=== PATIENT | male | born 1950 | race Caucasian/White ===

== ENCOUNTER 2016-07-09 10:03 | Outpatient (CLI) | payer MEDICARE | END 2016-07-09 10:04 | disposition home or self-care (01) | DX: R73.01 Impaired fasting glucose (principal); I10 Essential (primary) hypertension ==

== ENCOUNTER 2017-01-15 06:15 | Emergency (ER) | payer MEDICARE ==
[2017-01-15 06:34] LABS: BASOPHILS % (AUTO) 0.3 %; EOSINOPHILS # (AUTO) 0.1 10^3/uL (0.0-0.7); EOSINOPHILS % (AUTO) 0.7 %; HCT - HEMATOCRIT 45.2 % (42.0-52.0); HGB - HEMOGLOBIN 14.9 g/dL (14.0-18.0); LYMPHOCYTES # (AUTO) 1.2 10^3/uL (1.5-3.5); MEAN CORPUSCULAR HEMOGLOBIN 31.1 pg (27.0-31.0); MEAN CORPUSCULAR HGB CONC 32.9 g/dL (32.0-36.0); MEAN CORPUSCULAR VOLUME 94.3 fL (80.0-94.0); MEAN PLATELET VOLUME 7.8 fL (7.4-11.4); MONOCYTES # (AUTO) 0.6 10^3/uL (0.0-1.0); NEUTROPHILS # (AUTO) 10.6 10^3/uL (1.5-6.6); UNCORRECTED WHITE BLOOD COUNT 12.5 x10^3/uL; WHITE BLOOD COUNT 12.5 x10^3/uL (4.8-10.8)
[2017-01-15] MEDS ORDERED: HYDROmorphone 0.5 MG/0.5 ML SYRINGE IVP STA (06:43)
[2017-01-15 06:49] LABS: ALBUMIN/GLOBULIN RATIO 1.9 (1.0-2.2); BILIRUBIN,TOTAL 0.6 mg/dL (0.2-1.0); POTASSIUM 3.8 mmol/L (3.5-5.0)
[2017-01-15] MEDS ORDERED: HYDROmorphone 1 MG/ML SYRINGE ONE (06:53)
--- NOTE | 2017-01-15 07:26 | ED Physician Documentation ---
PD HPI ABD PAIN - Stated complaint Stated Complaint: UPPER ABD PX - Chief complaint Chief Complaint: Abd Pain - History obtained from History obtained from: Patient - History of Present Illness Timing - onset: How many days ago (3) Timing - duration: Days (3) Timing - details: Abrupt onset, Waxing and waning Pain level now: 3 Quality: Pain Location: RUQ Radiation: Other (no radiation) Improved by: Other (no apparent ameliorating factors) Worsened by: Other (PO intake) Associated symptoms: No: Fever, Nausea, Vomiting, Diarrhea, Constipation Similar symptoms before: Has not had sx before Recently seen: Not recently seen Review of Systems Constitutional: reports: Reviewed and negative Cardiac: reports: Reviewed and negative Respiratory: reports: Reviewed and negative GI: reports: Abdominal Pain. denies: Nausea, Vomiting, Constipation, Diarrhea : denies: Dysuria, Frequency PD PAST MEDICAL HISTORY - Past Medical History Past Medical History: Yes Cardiovascular: Hypertension - Past Surgical History Past Surgical History: Yes General: Hiatal hernia repair - Present Medications Home Medications: Ambulatory Orders Medication Instructions Recorded Confirmed Lisinopril [Zestril] 1 tab PO DAILY 01/15/17 01/15/17 oxyCODONE/ACET 5/325 [Percocet 5 1 - 2 each PO Q6H PRN #15 tablet 01/15/17 mg/325 mg] - Allergies Allergies/Adverse Reactions: Allergies Allergy/AdvReac Type Severity Reaction Status Date / Time Penicillins Allergy Unknown Verified 01/15/17 06:22 - Social History Does the pt smoke?: No Smoking Status: Never smoker Does the pt drink ETOH?: Yes Does the pt have substance abuse?: Yes - Immunizations Immunizations are current?: Yes - POLST Patient has POLST: No PD ED PE NORMAL - Vitals Vital signs reviewed: Yes - General General: Alert and oriented X 3, No acute distress, Well developed/nourished - HEENT HEENT: Moist mucous membranes - Cardiac Cardiac: RRR, No murmur - Respiratory Respiratory: No respiratory distress, Clear bilaterally - Abdomen Abdomen: Soft, Non distended, Other (RUQ tenderness without rebound or guarding) - Back Back: No CVA TTP - Derm Derm: Normal color, Warm and dry, No rash Results - Vitals Vitals: Oxygen O2 Source Room air - EKG (time done) No standard instances Rate: Rate (enter#) (60) Rhythm: NSR [place]: Normal Intervals: Normal IA QRS: Normal Ischemia: Normal ST segments - Labs Labs: Laboratory Tests 01/15/17 01/15/17 01/15/17 06:30 06:30 06:30 WBC 12.5 H RBC 4.80 Hgb 14.9 Hct 45.2 MCV 94.3 H MCH 31.1 H MCHC 32.9 RDW 13.0 Plt Count 224 MPV 7.8 Neut # 10.6 H Lymph # 1.2 L [place] # 0.6 Eos # 0.1 Baso # 0.0 Absolute Nucleated RBC 0.00 Nucleated RBC % 0.0 Sodium 135 Potassium 3.8 Chloride 100 L Carbon Dioxide 24 Anion Gap 11.0 BUN 21 H Creatinine 1.0 Estimated GFR (MDRD) 75 L Glucose 144 H Calcium 9.0 Total Bilirubin 0.6 AST 28 ALT 27 Alkaline Phosphatase 56 Troponin I < 0.04 Total Protein 7.0 Albumin 4.6 Globulin 2.4 Albumin/Globulin Ratio 1.9 Lipase 38 Urine Color Urine Clarity Urine pH Ur Specific Junction Urine Protein Urine Glucose (UA) Urine Ketones Urine Occult Blood Urine Nitrite Urine Bilirubin Urine Urobilinogen Ur Leukocyte Esterase Ur Microscopic Review Urine Culture Comments 01/15/17 08:50 WBC RBC Hgb Hct MCV MCH MCHC RDW Plt Count MPV Neut # Lymph # [place] # Eos # Baso # Absolute Nucleated RBC Nucleated RBC % Sodium Potassium Chloride Carbon Dioxide Anion Gap BUN Creatinine Estimated GFR (MDRD) Glucose Calcium Total Bilirubin AST ALT Alkaline Phosphatase Troponin I Total Protein Albumin Globulin Albumin/Globulin Ratio Lipase Urine Color YELLOW Urine Clarity CLEAR Urine pH 6.0 Ur Specific Junction 1.025 Urine Protein NEGATIVE Urine Glucose (UA) NEGATIVE Urine Ketones TRACE Urine Occult Blood NEGATIVE Urine Nitrite NEGATIVE Urine Bilirubin NEGATIVE Urine Urobilinogen 0.2 (NORMAL) Ur Leukocyte Esterase NEGATIVE Ur Microscopic Review NOT INDICATED Urine Culture Comments NOT INDICATED - Rads (name of study) RUQ US Radiology: Prelim report reviewed, See rad report PD MEDICAL DECISION MAKING - ED course Complexity details: reviewed results, re-evaluated patient, considered differential, d/w patient Departure - Departure Disposition: 01 Home, Self Care Clinical Impression: Cholecystitis Condition: Good Instructions: ED Gallstone W Biliary Colic Follow-Up: Kiya Burnette ARNP [Primary Care Provider] - Jim Menjivar MD [Provider Admit Priv/Credential] - Prescriptions: oxyCODONE/ACET 5/325 [Percocet 5 mg/325 mg] 1 - 2 each PO Q6H PRN #15 tablet PRN Reason: Pain Discharge Date/Time: 01/15/17 10:10
[2017-01-15 09:37] LABS: BILIRUBIN,URINE NEGATIVE (NEGATIVE)
[2017-01-15 09:40] LABS: UA CHARGE (STRIP ONLY) YES; UR CULTURE IF IND NOT INDICATED
--- NOTE | 2017-01-15 09:43 | Ultrasound Report ---
RIGHT UPPER QUADRANT ULTRASOUND: 01/15/2017 CLINICAL INDICATION: Pain. TECHNIQUE: Real-time scanning was performed with client account representative static images obtained. FINDINGS: The liver measures 15 cm. There is a 1.1 cm echogenic nodule in the posterior left lobe, compatible with a small hemangioma. No intrahepatic biliary dilatation or suspicious solid hepatic l esion is identified. The common bile duct measures 6 mm. The gallbladder demonstrates wall thickeni ng and pericholecystic fluid, as well as mobile sludge within the lumen. No definite shadowing calcu isabell is identified. The right kidney measures 9.9 cm, and demonstrates no hydronephrosis. IMPRESSION: GALLBLADDER WALL THICKENING, WITH PERICHOLECYSTIC FLUID, COMPATIBLE WITH ACUTE CHOLECYST ITIS. MOBILE SLUDGE IS SEEN WITHIN THE LUMEN, BUT NO DEFINITE SHADOWING CALCULUS IS APPRECIATED. JOB #: [id number] EXT JOB #:[id number]
[2017-01-15] MEDS ORDERED: KETOROLAC 60 MG/2 ML VIAL IVP STA (10:03)
[2017-01-15 10:21] VITALS: BP 134/65
== END 2017-01-15 10:10 | disposition home or self-care (01) ==
LOC: ED 06:15
DX: K81.0 Acute cholecystitis (principal); I10 Essential (primary) hypertension
CPT/HCPCS: 36415; 76705; 80053; 81003; 83690; 84484; 85025; 93005; 96374; 99284; J1170; 81001; 87086

== ENCOUNTER 2017-04-29 09:29 | Day surgery (SDC) | payer MEDICARE ==
[2017-04-29] MEDS ORDERED: LACTATED RINGERS 1,000 ML IV ONE (09:59)
[2017-04-29] MEDS ORDERED: MIDAZOLAM 2 MG/2 ML VIAL IVP ONE (10:04)
[2017-04-29] MEDS ORDERED: fentaNYL 100 MCG/2 ML VIAL IVP ONE (10:04)
[2017-04-29 11:20] VITALS: BP 109/62
== END 2017-04-29 09:30 | disposition home or self-care (01) ==
LOC: SDS 09:29
PROVIDERS: ATTEND Surgery
PROC: 0DJD8ZZ Inspection of Lower Intestinal Tract, Via Natural or Artificial Opening Endoscopic (ICD-10-PCS; principal; 2017-04-29 10:30)
DX: Z12.11 Encounter for screening for malignant neoplasm of colon (principal); K57.30 Diverticulosis of large intestine without perforation or abscess without bleeding; K64.8 Other hemorrhoids; Z86.010 Personal history of colon polyps; I10 Essential (primary) hypertension; Z86.718 Personal history of other venous thrombosis and embolism; Z87.891 Personal history of nicotine dependence
CPT/HCPCS: G0105; J7120

== ENCOUNTER 2018-01-01 15:06 | Outpatient (CLI) | payer MEDICARE | END 2018-01-01 15:07 | disposition home or self-care (01) | LOC: LAB.F 15:06 | PROVIDERS: ATTEND Nurse Practitioner Family | DX: M79.606 Pain in leg, unspecified (principal) | CPT/HCPCS: 36415; 85379 ==

== ENCOUNTER 2018-01-02 18:55 | Outpatient (CLI) | payer MEDICARE ==
--- NOTE | 2018-01-02 20:25 | Ultrasound Report ---
Reason: LEG PAIN, ACUTE Procedure Date: 01/02/2018 Accession Number: [id number] / [id number] Procedure: US - Duplex Ext Veins Right CPT Code: FULL RESULT: EXAM: RIGHT LOWER EXTREMITY VENOUS ULTRASOUND EXAM DATE: 01/02/2018 07:14 PM. CLINICAL HISTORY: Acute leg pain. COMPARISON: None. TECHNIQUE: Real-time sonographic vascular imaging was performed by the life enrichment director through the lower extremity utilizing both color-flow and Doppler spectral analysis. Multiple industrial relations representative static images were saved for review. FINDINGS: Common Femoral Vein (CFV): Normal. CFV-GSV Junction: Normal. Profunda Femoral Vein (PFV): Normal. Femoral Vein (FV) Prox: Normal. Femoral Vein (FV) Mid: Normal. Femoral Vein (FV) Dist: Normal. Popliteal Vein: Occlusive thrombus. Posterior Tibial Veins: Not well seen. Peroneal Veins: Not well seen. Other: None. IMPRESSION: Occlusive DVT in the right popliteal vein. RADIA The call report notification system was initiated by Dr. Redd Keller at 20:09 hrs on 01/02/18. The above findings were discussed with Dr. Zuluaga by Dr. Redd Keller at 20:24 hrs on 01/02/18.
== END 2018-01-02 18:56 | disposition home or self-care (01) ==
LOC: DI 18:55
PROVIDERS: ATTEND Internal Medicine
DX: I82.431 Acute embolism and thrombosis of right popliteal vein (principal)

== ENCOUNTER 2018-01-02 20:31 | Emergency (ER) | payer MEDICARE ==
[2018-01-02 20:40] VITALS: BP 126/70
[2018-01-02] MEDS ORDERED: RIVAROXABAN 15 MG TABLET PO STA (20:55)
--- NOTE | 2018-01-02 20:58 | ED Physician Documentation ---
History of Present Illness - Stated complaint Stated Complaint: DVT/PER DR AGARWAL - Chief complaint Chief Complaint: Ext Problem - Additonal information Additional information: 67-year-old male presents the emergency department with right calf pain for the past 6 days. The patient had an Outpatient ultrasound today which showed an acute DVT. The patient Was sent to the emergency department for anticoagulation. The patient has a history of a prior DVT. The patient denies chest pain, shortness of breath or any other acute symptoms. Symptoms are described as moderate. No triggering factors. No relieving factors. Review of Systems Constitutional: denies: Fever Eyes: denies: Loss of vision Ears: denies: Ear pain Nose: denies: Congestion Throat: denies: Sore throat Respiratory: denies: Dyspnea GI: denies: Abdominal Pain : denies: Dysuria Musculoskeletal: reports: Extremity pain PD PAST MEDICAL HISTORY - Past Medical History Past Medical History: No Cardiovascular: Hypertension Respiratory: None Neuro: None Endocrine/Autoimmune: None GI: Colon polyps : None HEENT: None Psych: None Musculoskeletal: Gout Derm: None - Past Surgical History Past Surgical History: Yes General: Colonoscopy, Other - Present Medications Home Medications: Ambulatory Orders Medication Instructions Recorded Confirmed Lisinopril [Zestril] 2 tab PO DAILY 01/15/17 01/02/18 Rivaroxaban [Xarelto] 15 mg PO BID 21 Days #42 tablet 01/02/18 - Allergies Allergies/Adverse Reactions: Allergies Allergy/AdvReac Type Severity Reaction Status Date / Time Penicillins Allergy Unknown Verified 01/02/18 20:40 - Social History Does the pt smoke?: No Smoking Status: Never smoker Does the pt drink ETOH?: Yes Does the pt have substance abuse?: Yes Substance Use and Type: Marijuana - Immunizations Immunizations are current?: Yes - POLST Patient has POLST: No PD ED PE NORMAL - General General: Alert and oriented X 3, No acute distress - HEENT HEENT: Atraumatic, PERRL, EOMI, Ears normal - Cardiac Cardiac: RRR, Strong equal pulses - Respiratory Respiratory: No respiratory distress - Neuro Neuro: Alert and oriented X 3, Normal speech - Psych Psych: Normal mood Results - Vitals Vitals: Vital Signs - 24 hr 01/02/18 20:35 Temperature 36.4 C L Heart Rate 67 Respiratory 16 Rate Blood Pressure 126/70 O2 Saturation 97 Oxygen O2 Source Room air PD MEDICAL DECISION MAKING - ED course ED course: 67-year-old male with an acute DVT, the patient was given the option of Xarelto or Lovenox and Coumadin. The risks and benefits of both were discussed. The patient chose Xarelto. The patient was given a dose in the emergency department and a prescription for the next 21 days. The patient will follow up with primary care. I discussed warning signs and recommended returning to the emergency department for any worsening or any concerns. Departure - Departure Disposition: 01 Home, Self Care Clinical Impression: DVT (deep venous thrombosis) Qualifiers: DVT location: lower extremity Affected thrombotic vein of extremity: popliteal Chronicity: acute Laterality: unspecified laterality Qualified Code(s): I82.439 - Acute embolism and thrombosis of unspecified popliteal vein Condition: Good Instructions: DVT Follow-Up: Kiya Agarwal ARNP [Primary Care Provider] - Tomorrow Prescriptions: Rivaroxaban [Xarelto] 15 mg PO BID 21 Days #42 tablet Comments: Please return to the emergency department for worsening symptoms or any concerns
== END 2018-01-02 21:06 | disposition home or self-care (01) ==
LOC: ED 20:31
DX: I82.431 Acute embolism and thrombosis of right popliteal vein (principal); I10 Essential (primary) hypertension; Z86.718 Personal history of other venous thrombosis and embolism
CPT/HCPCS: 93971; 99283; A9270

== ENCOUNTER 2018-02-24 09:17 | Outpatient (CLI) | payer MEDICARE ==
[2018-02-24 18:40] LABS: BASOPHILS % (AUTO) 0.9 %; EOSINOPHILS # (AUTO) 0.1 10^3/uL (0.0-0.7); EOSINOPHILS % (AUTO) 2.6 %; HGB - HEMOGLOBIN 15.2 g/dL (14.0-18.0); LYMPHOCYTES # (AUTO) 1.7 10^3/uL (1.5-3.5); LYMPHOCYTES % (AUTO) 33.9 %; MEAN CORPUSCULAR HEMOGLOBIN 31.6 pg (27.0-31.0); MEAN CORPUSCULAR HGB CONC 32.8 g/dL (32.0-36.0); MEAN CORPUSCULAR VOLUME 96.5 fL (80.0-94.0); MEAN PLATELET VOLUME 9.1 fL (7.4-11.4); MONOCYTES # (AUTO) 0.4 10^3/uL (0.0-1.0); MONOCYTES % (AUTO) 8.6 %; NEUTROPHILS # (AUTO) 2.8 10^3/uL (1.5-6.6); PLT - PLATELET COUNT 224 10^3/uL (130-450); RED BLOOD COUNT 4.81 10^6/uL (4.70-6.10); RED CELL DISTRIBUTION WIDTH 13.2 % (12.0-15.0); WHITE BLOOD COUNT 5.1 x10^3/uL (4.8-10.8)
[2018-02-24 18:53] LABS: HB2 TOTAL 16.4 g/dL; HEMOGLOBIN A1C 0.62 g/dL; HEMOGLOBIN A1C % 5.6 % (4.6-6.2)
[2018-02-24 19:02] LABS: ALBUMIN 4.1 g/dL (3.2-5.5); ALBUMIN/GLOBULIN RATIO 1.6 (1.0-2.2); ALKALINE PHOSPHATASE 53 IU/L (42-121); ALT ALANINE AMINOTRANSFERASE 24 IU/L (10-60); AST ASPARTATE AMINOTRANSFERASE 23 IU/L (10-42); BUN - BLOOD UREA NITROGEN 19 mg/dL (6-20); CALCIUM 8.7 mg/dL (8.5-10.3); CARBON DIOXIDE - CO2 27 mmol/L (21-32); CHLORIDE 103 mmol/L (101-111); CHOL/HDL RATIO 2.1 (<5.0); CHOLESTEROL 174 mg/dL; CREATININE 0.9 mg/dL (0.6-1.2); GFR - MDRD 84 (>89); GLUCOSE 103 mg/dL (70-100); HDL CHOLESTEROL 82 mg/dL; LDL CHOLESTEROL,CALCULATED 76 mg/dL; LDL/HDL RATIO 0.9 (<3.6); SODIUM 135 mmol/L (135-145); TOTAL PROTEIN 6.7 g/dL (6.7-8.2); VLDL CHOLESTEROL 16 mg/dL
== END 2018-02-24 23:59 | disposition home or self-care (01) ==
LOC: LAB.S 09:17
PROVIDERS: ATTEND Nurse Practitioner Family
DX: I10 Essential (primary) hypertension (principal); Z13.6 Encounter for screening for cardiovascular disorders; R73.01 Impaired fasting glucose; D72.829 Elevated white blood cell count, unspecified
CPT/HCPCS: 36415; 80053; 80061; 83036; 83721; 85025

== ENCOUNTER 2019-08-29 10:07 | Outpatient (CLI) | payer MEDICARE ==
[2019-08-29 13:19] LABS: BASOPHILS % (AUTO) 0.4 %; EOSINOPHILS % (AUTO) 0.2 %; HGB - HEMOGLOBIN 15.3 g/dL (14.0-18.0); LYMPHOCYTES % (AUTO) 8.6 %; MEAN CORPUSCULAR HGB CONC 33.5 g/dL (32.0-36.0); MEAN CORPUSCULAR VOLUME 95.6 fL (80.0-94.0); MEAN PLATELET VOLUME 10.8 fL (7.4-11.4); MONOCYTES # (AUTO) 0.7 10^3/uL (0.0-1.0); MONOCYTES % (AUTO) 6.4 %; NEUTROPHILS # (AUTO) 9.4 10^3/uL (1.5-6.6); PLT - PLATELET COUNT 271 10^3/uL (130-450); RED BLOOD COUNT 4.78 10^6/uL (4.70-6.10); RED CELL DISTRIBUTION WIDTH 12.5 % (12.0-15.0); WHITE BLOOD COUNT 11.2 x10^3/uL (4.8-10.8)
[2019-08-29 13:35] LABS: HEMOGLOBIN A1C 0.57 g/dL; HEMOGLOBIN A1C % 5.4 % (4.6-6.2)
[2019-08-29 13:37] LABS: AMYLASE 45 U/L (28-100); LIPASE 27 U/L (22-51)
[2019-08-29 13:42] LABS: ALBUMIN 4.2 g/dL (3.2-5.5); ALBUMIN/GLOBULIN RATIO 1.8 (1.0-2.2); ALKALINE PHOSPHATASE 58 IU/L (42-121); ALT ALANINE AMINOTRANSFERASE 21 IU/L (10-60); AST ASPARTATE AMINOTRANSFERASE 18 IU/L (10-42); BILIRUBIN,TOTAL 1.5 mg/dL (0.2-1.0); BUN - BLOOD UREA NITROGEN 18 mg/dL (6-20); CARBON DIOXIDE - CO2 28 mmol/L (21-32); CHLORIDE 95 mmol/L (101-111); CHOL/HDL RATIO 1.9 (<5.0); CHOLESTEROL 198 mg/dL; CREATININE 0.8 mg/dL (0.6-1.2); GLUCOSE 130 mg/dL (70-100); HDL CHOLESTEROL 106 mg/dL; LDL CHOLESTEROL,CALCULATED 83 mg/dL; LDL/HDL RATIO 0.8 (<3.6); SODIUM 135 mmol/L (135-145); TOTAL PROTEIN 6.5 g/dL (6.7-8.2); VLDL CHOLESTEROL 9 mg/dL
[2019-08-29 13:43] LABS: PSA FREE 0.14 ng/mL (0.16-2.81)
[2019-08-29 13:44] LABS: PSA TOTAL 0.8 ng/mL (0.000-2.000)
== END 2019-08-29 23:59 | disposition home or self-care (01) ==
LOC: LAB.S 10:07
PROVIDERS: ATTEND Registered Nurse
DX: I10 Essential (primary) hypertension (principal); R73.01 Impaired fasting glucose; R10.13 Epigastric pain
CPT/HCPCS: 36415; 80053; 80061; 82150; 83036; 83690; 83721; 84153; 84154; 84443; 85025

== ENCOUNTER 2020-02-12 16:47 | Outpatient (CLI) | payer MEDICARE | END 2020-02-12 16:48 | disposition home or self-care (01) | LOC: COV 16:47 | PROVIDERS: ATTEND Family Medicine | DX: Z20.828 Contact with and (suspected) exposure to other viral communicable diseases (principal) ==

== ENCOUNTER 2020-07-05 07:00 | Outpatient (CLI) | payer MEDICARE ==
--- NOTE | 2020-07-05 10:01 | XRAY Report ---
PROCEDURE: Shoulder 3 View RT INDICATIONS: RIGHT SHOULDER PAIN TECHNIQUE: 3 views of the shoulder were acquired. COMPARISON: None. FINDINGS: Bones: No acute fractures or dislocations. Moderate hypertrophic osteoarthritic changes of the right acromioclavicular joint are present. Coracoclavicular and acromioclavicular intervals are maintained . Mild glenohumeral joint degenerative change. No suspicious bony lesions. Visualized ribs appear in tact. Soft tissues: No suspicious soft tissue calcifications. IMPRESSION: Right shoulder without acute fracture or dislocation. Moderate hypertrophic osteoarthritic changes of the right acromioclavicular joint. Mild degenerative changes of the right glenohumeral joint. Reviewed by: Murali Lancaster MD on 07/05/2020 8:59 AM JIMENA Approved by: Murali Lancaster MD on 07/05/2020 8:59 AM JIMENA Station ID: [id number]
--- NOTE | 2020-07-05 10:05 | XRAY Report ---
PROCEDURE: Hand 3 View RT INDICATIONS: RIGHT HAND PAIN TECHNIQUE: 3 views of the hand(s) acquired. COMPARISON: None FINDINGS: Bones: No acute fractures are visualized. Alignment of the right hand and carpal bones appear anatom ic. There is moderate diffuse background polyarticular osteoarthritic changes of the right hand most notable in the distal interphalangeal joints of the second through fifth fingers as well as the inter phalangeal joint of the right. Mild degenerative changes of the metacarpophalangeal joints and proxim al interphalangeal joints of the right hand. Degenerative changes of the right first carpal metacarpa l and triscaphe joints. No suspicious osseous erosions. No periarticular osteopenia. No suspicious b lay lesions. Soft tissues: No suspicious soft tissue calcifications. Moderate dorsal soft tissue swelling of the right hand predominantly over the level of the metacarpophalangeal joints. IMPRESSION: Moderate dorsal right hand soft tissue swelling of the level of the metacarpophalangeal joints. No de finite underlying fracture or dislocation seen. Moderate diffuse background osteophytic changes of the right hand and wrist as described above. If there is persistent clinical concern for a radiographically occult fracture, recommend immobilizat ion and repeat imaging in 10 to 14 days. Reviewed by: Murali Lancaster MD on 07/05/2020 9:04 AM JIMENA Approved by: Murali Lancaster MD on 07/05/2020 9:04 AM JIMENA Station ID: [id number]
== END 2020-07-05 23:59 | disposition home or self-care (01) ==
LOC: DI.S 07:00
PROVIDERS: ATTEND Physician Assistant Medical
DX: M19.041 Primary osteoarthritis, right hand (principal); R60.0 Localized edema; M19.031 Primary osteoarthritis, right wrist; M19.011 Primary osteoarthritis, right shoulder

== ENCOUNTER 2020-08-01 12:58 | Outpatient (CLI) | payer MEDICARE ==
[2020-08-01] MEDS ORDERED: GADOBUTROL 7.5 MMOL/7.5 ML VIAL ONE (13:08)
[2020-08-01] MEDS ORDERED: BUFFERED LIDOCAINE 10 ML SYRINGE ONE (13:08)
[2020-08-01] MEDS ORDERED: GADOBUTROL 7.5 MMOL/7.5 ML VIAL IVP ONE (14:03)
[2020-08-01] MEDS ORDERED: BUFFERED LIDOCAINE 10 ML SYRINGE IU ONE (14:03)
[2020-08-01] MEDS ORDERED: iohexoL-240 20 ML VIAL IVP ONE (14:04)
--- NOTE | 2020-08-01 15:16 | XRAY Report ---
PROCEDURE: Arthrogram Needle Placement INDICATIONS: RT SHOULDER PAIN CONTRAST: CONTRAST: gadavist/omnip FLUOROSCOPY TIME: FLUORO TIME: 26sec and NUMBER IMAGES: 2 TECHNIQUE: The indications, alternatives, benefits, risks, and complications of the procedure were explained to the patient. Written informed consent was obtained and placed in the chart. The shoulder was examin ed fluoroscopically and a site for needle placement chosen for entry into the glenohumeral joint from an anterior approach. The skin was prepped and draped in the usual fashion, and 1% lidocaine infilt rated from skin down to joint capsule. A spinal needle was inserted into the glenohumeral joint, and a small amount of iodinated contrast media injected to confirm intra-articular placement of the need le tip. This was followed by approximately 12 mL dilute solution of a gadolinium containing MR contr ast agent. The needle was removed and a dressing was applied. The patient was given postprocedural instructions and sent to the MR suite for MR imaging. FINDINGS: A single fluoroscopic spot image demonstrates intra-articular location of injected iodinated contrast . IMPRESSION: Successful fluoroscopically guided administration of dilute Gadolinium solution into the shoulder kj poole for MR arthrogram. Reviewed by: Anna Gillette MD on 08/01/2020 3:15 PM PDT Approved by: Anna Gillette MD on 08/01/2020 3:15 PM PDT Station ID: [id number]
--- NOTE | 2020-08-01 16:56 | MRI Report ---
PROCEDURE: Arthrogram Shoulder RT INDICATIONS: RT SHOULDER PAIN CONTRAST: 12 mL of diluted intra-articular gadolinium contrast. TECHNIQUE: After the administration of 12 mL of dilute intra-articular Gadolinium contrast, oblique coronal T1 a nd T2 spin echo with fat saturation, oblique sagittal T1 spin echo with and without fat saturation, o blique sagittal T2 fast spin echo with fat saturation, axial T1 spin echo with fat saturation through the shoulder. COMPARISON: Shoulder radiograph dated 07/05/2020. FINDINGS: Image quality: Excellent. Rotator cuff: Tendinosis and low to moderate grade articular and bursal surface partial-thickness tea r involving distal supraspinatus at its insertion on humeral head is seen extending to musculotendino us junction. Distal infraspinatus and subscapularis tendons are grossly intact. No full-thickness rot ator cuff tendon rupture.. Very mild supraspinatus muscle atrophy is seen on sagittal images. Bones and bursae: No bone marrow contusions or fractures. Moderate acromioclavicular joint osteoarth ritic changes are noted with downward osteophyte formation depressing on musculotendinous junction of supraspinatus. Capsule and soft tissues: There is superior labral tear at 11 to 1:00 position. The glenohumeral liga ments appear intact. The long head of the biceps tendon tendinosis and low-grade partial-thickness t ear is noted. The rotator interval appears normal, without fibrosis. The coracohumeral ligament is o f normal thickness. No intra-articular bodies. IMPRESSION: 1. Tendinosis and low to moderate grade articular and bursal surface partial-thickness tear involving distal supraspinatus extending to musculotendinous junction. Mild supraspinatus muscle atrophy. 2. Moderate acromioclavicular joint osteoarthritis. 3. Suggestion of superior labral tear at 11 to 1:00 position. 4. Proximal intra-articular portion of long head of biceps tendinosis and low-grade partial-thickness tear. Reviewed by: Bebo Ozuna MD on 08/01/2020 4:55 PM PDT Approved by: Bebo Ozuna MD on 08/01/2020 4:55 PM PDT Station ID: [id number]
== END 2020-08-01 12:59 | disposition home or self-care (01) ==
LOC: DI 12:58
PROVIDERS: ATTEND Registered Nurse
DX: M75.111 Incomplete rotator cuff tear or rupture of right shoulder, not specified as traumatic (principal); M19.011 Primary osteoarthritis, right shoulder; S46.121A Laceration of muscle, fascia and tendon of long head of biceps, right arm, initial encounter; R93.6 Abnormal findings on diagnostic imaging of limbs
CPT/HCPCS: 23350; 73222; 77002; A9585; Q9966

== ENCOUNTER 2020-10-03 08:05 | Outpatient (CLI) | payer MEDICARE ==
[2020-10-03 15:27] LABS: BASOPHILS % (AUTO) 0.5 %; EOSINOPHILS # (AUTO) 0.1 10^3/uL (0.0-0.7); EOSINOPHILS % (AUTO) 2.5 %; HGB - HEMOGLOBIN 14.9 g/dL (14.0-18.0); LYMPHOCYTES # (AUTO) 1.5 10^3/uL (1.5-3.5); LYMPHOCYTES % (AUTO) 27.3 %; MEAN CORPUSCULAR HEMOGLOBIN 32.3 pg (27.0-31.0); MEAN CORPUSCULAR HGB CONC 33.1 g/dL (32.0-36.0); MEAN CORPUSCULAR VOLUME 97.4 fL (80.0-94.0); MEAN PLATELET VOLUME 10.6 fL (7.4-11.4); MONOCYTES # (AUTO) 0.6 10^3/uL (0.0-1.0); NEUTROPHILS # (AUTO) 3.3 10^3/uL (1.5-6.6); NEUTROPHILS % (AUTO) 59.2 %; PLT - PLATELET COUNT 226 10^3/uL (130-450); RED BLOOD COUNT 4.62 10^6/uL (4.70-6.10); RED CELL DISTRIBUTION WIDTH 12.7 % (12.0-15.0); WHITE BLOOD COUNT 5.5 x10^3/uL (4.8-10.8)
[2020-10-03 16:10] LABS: THYROID STIMULATING HORMONE 2.42 uIU/mL (0.34-5.60)
[2020-10-03 16:18] LABS: ALBUMIN 4.1 g/dL (3.2-5.5); ALBUMIN/GLOBULIN RATIO 1.6 (1.0-2.2); ALKALINE PHOSPHATASE 42 IU/L (42-121); ALT ALANINE AMINOTRANSFERASE 20 IU/L (10-60); AST ASPARTATE AMINOTRANSFERASE 18 IU/L (10-42); BILIRUBIN,TOTAL 0.7 mg/dL (0.2-1.0); BUN - BLOOD UREA NITROGEN 20 mg/dL (6-20); CARBON DIOXIDE - CO2 23 mmol/L (21-32); CHLORIDE 105 mmol/L (101-111); CHOL/HDL RATIO 2.1 (<5.0); CHOLESTEROL 184 mg/dL; GFR - MDRD 74 (>89); GLUCOSE 108 mg/dL (70-100); HDL CHOLESTEROL 86 mg/dL; LDL CHOLESTEROL,CALCULATED 90 mg/dL; POTASSIUM 4.5 mmol/L (3.5-5.0); SODIUM 138 mmol/L (135-145); TOTAL PROTEIN 6.6 g/dL (6.7-8.2); TRIGLYCERIDES 41 mg/dL; VLDL CHOLESTEROL 8 mg/dL
== END 2020-10-03 08:06 | disposition home or self-care (01) ==
LOC: LAB.S 08:05
PROVIDERS: ATTEND Registered Nurse
DX: I10 Essential (primary) hypertension (principal); Z79.01 Long term (current) use of anticoagulants; Z87.39 Personal history of other diseases of the musculoskeletal system and connective tissue; Z12.5 Encounter for screening for malignant neoplasm of prostate
CPT/HCPCS: 36415; 80053; 80061; 84443; 85025; G0103; 83721; 84153

== ENCOUNTER 2021-04-11 09:19 | Outpatient (CLI) | payer MEDICARE ==
--- NOTE | 2021-04-11 16:29 | Ultrasound Report ---
PROCEDURE: Aorta Screening INDICATIONS: HYPERTENSION TECHNIQUE: Real time scanning was performed of the aorta and iliac arteries, with image documentatio n. COMPARISON: None FINDINGS: Aorta: Proximal aortic diameter measures 2.4 x 2.4 cm. Mid-aorta measures 1.8 x 1.8 cm. Distal aor tic diameter is 1.6 x 1.8 cm. Iliac arteries: Right common iliac artery measures 1.1 x 1.2 cm. Left common iliac artery measures 1.2 x 1.2 cm. IMPRESSION: No abdominal aortic aneurysm. Reviewed by: Bebo Ozuna MD on 04/11/2021 4:28 PM PST Approved by: Bebo Ozuna MD on 04/11/2021 4:28 PM PST Station ID: [id number]
== END 2021-04-11 09:20 | disposition home or self-care (01) ==
LOC: DI 09:19
PROVIDERS: ATTEND Registered Nurse
DX: Z13.6 Encounter for screening for cardiovascular disorders (principal); Z79.01 Long term (current) use of anticoagulants; I10 Essential (primary) hypertension

== ENCOUNTER 2021-08-31 09:15 | Outpatient (CLI) | payer MEDICARE ==
--- NOTE | 2021-08-31 15:09 | XRAY Report ---
PROCEDURE: Wrist 2 View BILAT INDICATIONS: WRIST PAIN TECHNIQUE: 2 views of each wrist were acquired. COMPARISON: X-ray right hand, 07/05/2020. FINDINGS: Bones: No acute fractures or dislocations. There is a ossicle in the dorsal aspect of the left wris t, suspicious for an old triquetral fracture. No suspicious bony lesions. Osteoarthritic changes oliva aterally, moderate on the left and mild on the right. Soft tissues: No suspicious soft tissue calcifications. IMPRESSION: 1. Osteoarthritis, left greater than right. 2. Suspect old left triquetral fracture. Reviewed by: Seferino Lane MD on 08/31/2021 3:08 PM PDT Approved by: Seferino Lane MD on 08/31/2021 3:08 PM PDT Station ID: [id number]
--- NOTE | 2021-08-31 15:51 | XRAY Report ---
PROCEDURE: Knee 2 View BILAT INDICATIONS: BILATERAL KNEE PAIN TECHNIQUE: 2 views of the bilateral knee(s) were acquired. COMPARISON: Right knee dated 02/27/2016. FINDINGS: Bones: No fractures or dislocations. No suspicious bony lesions. Tricompartment osteophytosis. Faheem ateral moderate to severe medial compartment joint space loss. Right knee is significantly progressiv e since the prior study from 2015. Soft tissues: No joint effusion. No suspicious soft tissue calcifications. IMPRESSION: Degenerative arthritis of the bilateral knees Reviewed by: Yair Myles MD on 08/31/2021 3:50 PM PDT Approved by: Yair Myles MD on 08/31/2021 3:50 PM PDT Station ID: [id number]
== END 2021-08-31 09:16 | disposition home or self-care (01) ==
LOC: DI.S 09:15
PROVIDERS: ATTEND Registered Nurse
DX: M19.032 Primary osteoarthritis, left wrist (principal); M19.031 Primary osteoarthritis, right wrist; M17.0 Bilateral primary osteoarthritis of knee

== ENCOUNTER 2022-01-19 09:06 | Outpatient (CLI) | payer MEDICARE ==
[2022-01-19 14:51] LABS: BASOPHILS % (AUTO) 0.5 %; EOSINOPHILS # (AUTO) 0.2 10^3/uL (0.0-0.7); EOSINOPHILS % (AUTO) 2.5 %; HCT - HEMATOCRIT 48.8 % (42.0-52.0); HGB - HEMOGLOBIN 15.7 g/dL (14.0-18.0); LYMPHOCYTES # (AUTO) 1.8 10^3/uL (1.5-3.5); LYMPHOCYTES % (AUTO) 28.5 %; MEAN CORPUSCULAR HEMOGLOBIN 31.4 pg (27.0-31.0); MEAN CORPUSCULAR HGB CONC 32.2 g/dL (32.0-36.0); MEAN CORPUSCULAR VOLUME 97.6 fL (80.0-94.0); MEAN PLATELET VOLUME 10.6 fL (7.4-11.4); MONOCYTES # (AUTO) 0.7 10^3/uL (0.0-1.0); MONOCYTES % (AUTO) 10.9 %; NEUTROPHILS # (AUTO) 3.6 10^3/uL (1.5-6.6); NEUTROPHILS % (AUTO) 57.3 %; PLT - PLATELET COUNT 247 10^3/uL (130-450); RED CELL DISTRIBUTION WIDTH 12.6 % (12.0-15.0); WHITE BLOOD COUNT 6.3 x10^3/uL (4.8-10.8)
[2022-01-19 15:16] LABS: ALBUMIN/GLOBULIN RATIO 1.3 (1.0-2.2); ALKALINE PHOSPHATASE 70 IU/L (42-121); ALT ALANINE AMINOTRANSFERASE 25 IU/L (10-60); AST ASPARTATE AMINOTRANSFERASE 20 IU/L (10-42); BILIRUBIN,TOTAL 1.1 mg/dL (0.2-1.0); BUN - BLOOD UREA NITROGEN 19 mg/dL (6-20); CALCIUM 8.9 mg/dL (8.5-10.3); CARBON DIOXIDE - CO2 27 mmol/L (21-32); CHLORIDE 102 mmol/L (101-111); CHOL/HDL RATIO 1.9 (<5.0); CHOLESTEROL 171 mg/dL; CREATININE 0.9 mg/dL (0.6-1.2); GFR - MDRD 83 (>89); GLUCOSE 105 mg/dL (70-100); HDL CHOLESTEROL 92 mg/dL; LDL CHOLESTEROL,CALCULATED 68 mg/dL; LDL/HDL RATIO 0.7 (<3.6); POTASSIUM 4.5 mmol/L (3.5-5.0); SODIUM 136 mmol/L (135-145); TRIGLYCERIDES 54 mg/dL; VLDL CHOLESTEROL 11 mg/dL
[2022-01-19 15:25] LABS: THYROID STIMULATING HORMONE 3.03 uIU/mL (0.34-5.60)
== END 2022-01-19 09:07 | disposition home or self-care (01) ==
LOC: LAB.S 09:06
PROVIDERS: ATTEND Registered Nurse
DX: Z79.01 Long term (current) use of anticoagulants (principal); I10 Essential (primary) hypertension; Z13.220 Encounter for screening for lipoid disorders
CPT/HCPCS: 36415; 80053; 80061; 83721; 84443; 85025

== ENCOUNTER 2023-06-27 07:37 | Outpatient (CLI) | payer MEDICARE ==
[2023-06-27 14:36] LABS: BASOPHILS % (AUTO) 0.3 %; EOSINOPHILS # (AUTO) 0.1 10^3/uL (0.0-0.7); HCT - HEMATOCRIT 48.1 % (42.0-52.0); HGB - HEMOGLOBIN 15.4 g/dL (14.0-18.0); LYMPHOCYTES # (AUTO) 1.6 10^3/uL (1.5-3.5); LYMPHOCYTES % (AUTO) 26.6 %; MEAN CORPUSCULAR HEMOGLOBIN 31.4 pg (27.0-31.0); MEAN CORPUSCULAR VOLUME 98.2 fL (80.0-94.0); MEAN PLATELET VOLUME 10.8 fL (7.4-11.4); MONOCYTES # (AUTO) 0.6 10^3/uL (0.0-1.0); MONOCYTES % (AUTO) 10.7 %; NEUTROPHILS # (AUTO) 3.5 10^3/uL (1.5-6.6); NEUTROPHILS % (AUTO) 60.1 %; PLT - PLATELET COUNT 238 10^3/uL (130-450); RED CELL DISTRIBUTION WIDTH 13.4 % (12.0-15.0); WHITE BLOOD COUNT 5.9 x10^3/uL (4.8-10.8)
[2023-06-27 15:17] LABS: ALBUMIN 4.2 g/dL (3.2-5.5); ALBUMIN/GLOBULIN RATIO 1.7 (1.0-2.2); ALKALINE PHOSPHATASE 60 IU/L (42-121); ALT ALANINE AMINOTRANSFERASE 20 IU/L (10-60); AST ASPARTATE AMINOTRANSFERASE 20 IU/L (10-42); BILIRUBIN,TOTAL 0.8 mg/dL (0.2-1.0); BUN - BLOOD UREA NITROGEN 20 mg/dL (6-20); CALCIUM 9.6 mg/dL (8.5-10.3); CARBON DIOXIDE - CO2 28 mmol/L (21-32); CHLORIDE 105 mmol/L (101-111); CHOL/HDL RATIO 2.1 (<5.0); CHOLESTEROL 181 mg/dL; CREATININE 0.9 mg/dL (0.6-1.3); GFR - MDRD 83 (>89); GLUCOSE 94 mg/dL (74-104); HDL CHOLESTEROL 87 mg/dL; LDL CHOLESTEROL,CALCULATED 80 mg/dL; LDL/HDL RATIO 0.9 (<3.6); POTASSIUM 4.4 mmol/L (3.5-4.5); SODIUM 138 mmol/L (135-145); TOTAL PROTEIN 6.7 g/dL (6.4-8.9); TRIGLYCERIDES 68 mg/dL (48-352); VLDL CHOLESTEROL 14 mg/dL
== END 2023-06-27 07:38 | disposition home or self-care (01) ==
LOC: LAB.S 07:37
PROVIDERS: ATTEND Registered Nurse
DX: Z79.899 Other long term (current) drug therapy (principal); Z12.5 Encounter for screening for malignant neoplasm of prostate
CPT/HCPCS: 36415; 80053; 80061; 85025; G0103; 83721; 84153